=== PATIENT | female | born 1980 | race Two or more races ===

== ENCOUNTER 2017-01-06 19:03 | Emergency (ER) | payer OTHER ==
[2017-01-06 19:19] VITALS: BP 104/79; PULSE 79; TEMP 97.6; BMI 18.4
[2017-01-06] MEDS ORDERED: METOCLOPRAMIDE HCL INJECTION 10 MG/2 ML VIAL IVPB ONE (19:38)
[2017-01-06] MEDS ORDERED: SODIUM CHLORIDE 0.9% 1000 ML INFUS.BAG IV STA (19:38)
--- NOTE | 2017-01-06 19:40 | PDOC ---
History of Present Illness - General Chief Complaint: Headache Stated Complaint: HEADACHE Time Seen by Provider: 01/06/17 19:24 History Source: Patient Exam Limitations: No Limitations - History of Present Illness Initial Comments: 01/06/17 19:39 36 yr female history of migraine headaches presents with left sided migraine since 2pm today after getting manicure and pedicure. Pt vomited x1. Pt has history of migraines, this is typical migraine. Associated Symptoms: reports: nausea/vomiting. denies: fever/chills, slurred speech, tingling in legs/feet, trouble walking Past History - Past Medical History Allergies/Adverse Reactions: Allergies Allergy/AdvReac Type Severity Reaction Status Date / Time No Known Allergies Allergy Verified 01/06/17 19:16 Home Medications: Ambulatory Orders Acetaminophen/Caffeine/Butalb [Fioricet -] 1 tab PO Q6H #28 tablet 04/05/15 Other medical history: Pt denies - Surgical History Abdominal Surgery: Yes - Psycho/Social/Smoking Cessation Hx Anxiety: No Suicidal Ideation: No Smoking History: Never smoked Have you smoked in the past 12 months: No Information on smoking cessation initiated: No Hx Alcohol Use: No Drug/Substance Use Hx: No Substance Use Type: None Neuro Specific PMHX - Complaint Specific PMHX Migraine: Yes Review of Systems - Review of Systems Able to Perform ROS?: Yes Is the patient limited Czech proficient: No Constitutional: No: Symptoms Reported HEENTM: No: Symptoms Reported Respiratory: No: Symptoms reported Cardiac (ROS): No: Symptoms Reported ABD/GI: No: Symptoms Reported : No: Symptoms Reported Musculoskeletal: No: Symptoms Reported Integumentary: No: Symptoms Reported Neurological: Yes: Symptoms reported, See HPI, Headache *Physical Exam - Vital Signs Last Vital Signs Temp Pulse Resp BP Pulse Ox 97.6 F 79 19 104/79 99 01/06/17 19:16 01/06/17 19:16 01/06/17 19:16 01/06/17 19:16 01/06/17 19:16 - Physical Exam General Appearance: Yes: Nourished, Appropriately Dressed HEENT: positive: EOMI, JOSE, Normal ENT Inspection, TMs Normal, Pharynx Normal, Other (pos photophobia) Neck: positive: Supple. negative: Tender Respiratory/Chest: positive: Lungs Clear, Normal Breath Sounds Cardiovascular: positive: Regular Rhythm, Regular Rate Gastrointestinal/Abdominal: positive: Normal Bowel Sounds, Soft. negative: Tender Musculoskeletal: positive: Normal Inspection Extremity: positive: Normal Capillary Refill, Normal Inspection, Normal Range of Motion Integumentary: positive: Normal Color, Dry, Warm Neurologic: positive: Fully Oriented, Alert, Normal Mood/Affect, Normal Response , Motor Strength 5/5, Finger to Nose (intact ). negative: Sensory Deficit Progress Note - Progress Note Progress Note: pt improved after meds asking to go home. pt states headache has resolved . dc home with friend who is driving. pt is stable for dc. Medical Decision Making - Medical Decision Making 01/06/17 19:45 cc: migraine headache typical migraine with nv, photophobia pt took fioricet with no relief will give IVF, reglan, benadryl and re-evaluate pt states her menses started today which sometimes triggers migraines no fever no foreign travel *DC/Admit/Observation/Transfer Diagnosis at time of Disposition: Migraine Qualifiers: Migraine type: menstrual Status migrainosus presence: with status migrainosus Intractability: not intractable Qualified Code(s): G43.821 - Menstrual migraine , not intractable, with status migrainosus - Discharge Dispostion Disposition: HOME Condition at time of disposition: Stable - Referrals Referrals: STAFF,NOT ON [Primary Care Provider] - - Patient Instructions Printed Discharge Instructions: DI for Migraine Additional Instructions: drink at least 2 liters of water follow with your doctor Monday avoid the heat light loud noise return if needed
[2017-01-06] MEDS ORDERED: METOCLOPRAMIDE HCL INJECTION 10 MG/2 ML VIAL ONE (20:00)
== END 2017-01-06 21:15 | disposition home or self-care (01) ==
LOC: JERFT 19:03
PROC: 3E033GC Introduction of Other Therapeutic Substance into Peripheral Vein, Percutaneous Approach (ICD-10-PCS; principal; 2017-01-06)
PROC: 3E033GC Introduction of Other Therapeutic Substance into Peripheral Vein, Percutaneous Approach (ICD-10-PCS; 2017-01-06)
DX: G43.821 Menstrual migraine, not intractable, with status migrainosus (principal)
CPT/HCPCS: 84703; 96374; 96375; 99281-25

== ENCOUNTER → 2018-10-18 | Day surgery (SDC) | payer OTHER ==
--- NOTE | 2018-10-19 14:13 | PATH ---
Surgical Pathology Report Patient Name: EVA MONTIEL Med. Rec. #: [id number] /Age/Gender: 1980 (Age: 38) / F Account: [id number] Location: [facility] Taken: 10/18/2018 Received: 10/18/2018 Reported: 10/19/2018 Physicians: Rashmi Velásquez M.D. Specimen(s) Received LEFT BREAST 8:00 Clinical History Nonpalpable lesions Ultrasound findings: Suspicious Final Diagnosis LEFT BREAST, 8:00, 0.95 CM MASS, ULTRASOUND GUIDED CORE BIOPSY: BREAST TISSUE WITH FIBROADENOMA. Electronically Signed Wolf Roach M.D. Gross Description Received in formalin labeled "left breast 8:00," are 3 dick-yellow, cylindrical portions of fibroadipose tissue ranging from 0.5-1.4 cm in length and averaging 0.1 cm in diameter. The specimens are submitted in toto in one cassette. Time to formalin fixation: Less than one minute Total formalin fixation time: Approximately 8 hours. /10/18/2018 [facility]/10/18/2018
== END | disposition home or self-care (01) ==
LOC: JRADUS-SUR 08:34
PROVIDERS: ATTEND Obstetrics & Gynecology
PROC: 0HBU3ZX Excision of Left Breast, Percutaneous Approach, Diagnostic (ICD-10-PCS; principal; 2018-10-18)
DX: D24.2 Benign neoplasm of left breast (principal)
CPT/HCPCS: 19083; 87899; 88305-TC; A4648